=== PATIENT | female | born 1995 | race Caucasian/White ===

== ENCOUNTER 2017-08-28 15:14 | Emergency (ER) | payer OTHER ==
--- NOTE | 2017-08-28 15:27 | EDPHY ---
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 - Social History Smoking Status: Never smoked Constitutional: Initial Vital Signs Temperature (C) 36.4 C 08/28/17 15:17 Heart Rate 82 08/28/17 15:17 Respiratory Rate 18 08/28/17 15:17 Blood Pressure 127/86 H 08/28/17 15:17 O2 Sat (%) 97 08/28/17 15:17 O2 Delivery Mode Nasal Cannula O2 (L/minute) 2 Allergies/Adverse Reactions: No Known Allergies Allergy (Verified 08/28/17 15:15) Home Medications: Medication Instructions Recorded Azithromycin [Zithromax] 250 mg PO DAILY #6 tab 08/28/17 Medical Decision Making ED Course/Re-evaluation: CHIEF COMPLAINT: Nausea, vomiting, diarrhea HISTORY OF PRESENT ILLNESS: The patient is a 22 y/o female with a history of VUR in her right kidney complaining of nausea, vomiting, diarrhea, chills, and urinary complaints for 4 days. She recently traveled to [place] and had these symptoms onset shortly after eating [place] 4 days ago. She has not had a solid bowel movement since her symptoms began, and her stool has a yellow color to it and is watery. She is prone to UTI's and is concerned that she has another UTI. Her symptoms become exacerbated after eating. Her friend is in this ED with similar GI symptoms. Denies chest pain, shortness of breath, numbness, paresthesias, headache. REVIEW OF SYSTEMS: A 10 point review of systems was performed and is negative with the exception of the elements mentioned in the history of present illness. PHYSICAL EXAM: HR, BP, O2 Sat, RR. Temp noted General Appearance: Alert, well hydrated, appropriate, and non-toxic appearing. Head: Atraumatic without scalp tenderness or obvious injury Eyes: Pupils equal, round, reactive to light and accommodation, EOMI, no trauma , no injection. Ears: Clear bilaterally, no perforation, normal landmarks Nose: Atraumatic, no rhinorrhea, clear. Throat: There is no erythema or exudates, no lesions, normal tonsils, mucus membranes moist. Neck: Supple, nontender, no lymphadenopathy. Respiratory: No retractions, no distress, no wheezes, and no accessory muscle use. Lungs are clear to auscultation bilaterally. Cardiovascular: Regular rate and rhythm, no murmurs, rubs, or gallops. Good capillary refill all extremities. Gastrointestinal: Mild diffuse abdominal tenderness. Mild right flank pain. Mild distension. Abdomen is soft, no masses, no rebound, no guarding, no peritoneal signs. Musculoskeletal: Normal active ROM of all extremities, atraumatic. Neurological: Alert, appropriate, and interactive. Non-focal neuro Skin: No rashes, good turgor, no nodules on palpation. Past medical history: UTIs and Kidney Infections, VUR in right Kidney Past surgical history: Leopold teeth extraction Family history: Denies Social history: Student at , lives in [place], [facility] DIFFERENTIAL DIAGNOSIS: The differential diagnosis for the patient's nausea, vomiting, and diarrhea included but was not limited to bacterial infection, parasitic infection, gastroenteritis, gastritis, appendicitis, and medication side effect. MEDICAL DECISION MAKING: The patient is a 22 y/o female presenting with nausea, vomiting, diarrhea, and chills for 4 days. She is still having frequent episodes of yellow, watery diarrhea. On exam she has mild diffuse abdominal tenderness, mild abdominal distension and mild right flank pain. She would like her urine and stool to be tested for an infectious process. Blood work, UA, and GI pathogen ordered. 2L IV NS, 1gm IV Invanz, 0.5mg IV Dilaudid, 4mg IV Zofran, and 30mg IV Toradol administered. 1629: Patient is not feeling better after medication and is complaining of rectal pain and spasms. SAGAR Zuniga will preform a rectal exam. 1mg IV Ativan and additional 0.5mg IV Dilaudid administered. 173: Patient's UA reveals 1+ bacteria. 181: Patient's nurse has reported that the patient is not feeling improved and continues to feel nauseous. 12.5mg IV Phenergan administered. 190: Reassessed patient; she is feeling mildly improved. I have prescribed her Zithromax, Zofran, and [place] for her symptoms. Return precautions provided; patient is comfortable with this plan. - Data Points Laboratory Results: Laboratory Results 08/28/17 15:47 08/28/17 15:47 08/28/17 08/28/17 08/28/17 17:50 16:50 15:47 WBC RBC Hgb Hct MCV MCH MCHC RDW Plt Count MPV Neut % (Auto) Lymph % (Auto) [place] % (Auto) Eos % (Auto) Baso % (Auto) Nucleat RBC Rel Count Absolute Neuts (auto) Absolute Lymphs (auto) Absolute Monos (auto) Absolute Eos (auto) Absolute Basos (auto) Absolute Nucleated RBC Immature Gran % Immature Gran # Sodium 142 mEq/L mEq/L (135-145) Potassium 4.0 mEq/L mEq/L (3.5-5.2) Chloride 107 mEq/L mEq/L (97-110) Carbon Dioxide 26 mEq/l mEq/l (22-31) Anion Gap 9 mEq/L mEq/L (8-16) BUN 11 mg/dL mg/dL (7-23) Creatinine 0.8 mg/dL mg/dL (0.6-1.0) Estimated GFR > 60 Glucose 98 mg/dL mg/dL (70-100) Calcium 9.9 mg/dL mg/dL (8.5-10.4) Total Bilirubin 0.5 mg/dL mg/dL (0.1-1.4) Conjugated Bilirubin 0.2 mg/dL mg/dL (0.0-0.5) Unconjugated Bilirubin 0.3 mg/dL mg/dL (0.0-1.1) AST 32 IU/L IU/L (14-46) ALT 32 IU/L IU/L (9-52) Alkaline Phosphatase 64 IU/L IU/L (38-126) Total Protein 7.6 g/dL g/dL (6.3-8.2) Albumin 4.5 g/dL g/dL (3.5-5.0) Lipase 174 IU/L IU/L (23-300) Urine Color PALE YELLOW Urine Appearance CLEAR Urine pH 6.0 (5.0-7.5) Ur Specific [place] 1.004 (1.002-1.030) Urine Protein NEGATIVE (NEGATIVE) Urine Ketones NEGATIVE (NEGATIVE) Urine Blood NEGATIVE (NEGATIVE) Urine Nitrate NEGATIVE (NEGATIVE) Urine Bilirubin NEGATIVE (NEGATIVE) Urine Urobilinogen NEGATIVE EU EU (0.2-1.0) Ur Leukocyte Esterase NEGATIVE (NEGATIVE) Urine RBC 1-3 /hpf /hpf (0-3) Urine WBC 1-3 /hpf /hpf (0-3) Ur Epithelial Cells TRACE /lpf /lpf (NONE-1+) Urine Bacteria 1+ /hpf H /hpf (NONE SEEN) Urine Glucose NEGATIVE (NEGATIVE) Stool Concentration Pending Stool Ova & Parasites Pending Parasite Trichrome Pending Direct Microscop Exam Pending 08/28/17 15:47 WBC 6.17 10^3/uL 10^3/uL (3.80-9.50) RBC 4.82 10^6/uL 10^6/uL (4.18-5.33) Hgb 14.6 g/dL g/dL (12.6-16.3) Hct 41.8 % % (38.0-47.0) MCV 86.7 fL fL (81.5-99.8) MCH 30.3 pg pg (27.9-34.1) MCHC 34.9 g/dL g/dL (32.4-36.7) RDW 11.9 % % (11.5-15.2) Plt Count 250 10^3/uL 10^3/uL (150-400) MPV 9.6 fL fL (8.7-11.7) Neut % (Auto) 59.5 % % (39.3-74.2) Lymph % (Auto) 25.9 % % (15.0-45.0) [place] % (Auto) 12.2 % % (4.5-13.0) Eos % (Auto) 1.8 % % (0.6-7.6) Baso % (Auto) 0.3 % % (0.3-1.7) Nucleat RBC Rel Count 0.0 % % (0.0-0.2) Absolute Neuts (auto) 3.67 10^3/uL 10^3/uL (1.70-6.50) Absolute Lymphs (auto) 1.60 10^3/uL 10^3/uL (1.00-3.00) Absolute Monos (auto) 0.75 10^3/uL 10^3/uL (0.30-0.80) Absolute Eos (auto) 0.11 10^3/uL 10^3/uL (0.03-0.40) Absolute Basos (auto) 0.02 10^3/uL 10^3/uL (0.02-0.10) Absolute Nucleated RBC 0.00 10^3/uL 10^3/uL (0-0.01) Immature Gran % 0.3 % % (0.0-1.1) Immature Gran # 0.02 10^3/uL 10^3/uL (0.00-0.10) Sodium Potassium Chloride Carbon Dioxide Anion Gap BUN Creatinine Estimated GFR Glucose Calcium Total Bilirubin Conjugated Bilirubin Unconjugated Bilirubin AST ALT Alkaline Phosphatase Total Protein Albumin Lipase Urine Color Urine Appearance Urine pH Ur Specific [place] Urine Protein Urine Ketones Urine Blood Urine Nitrate Urine Bilirubin Urine Urobilinogen Ur Leukocyte Esterase Urine RBC Urine WBC Ur Epithelial Cells Urine Bacteria Urine Glucose Stool Concentration Stool Ova & Parasites Parasite Trichrome Direct Microscop Exam Medications Given: Discontinued Medications Ertapenem (Invanz) 1 gm IVP EDNOW ONE PRN Reason: Protocol Stop: 08/28/17 15:46 Last Admin: 08/28/17 15:57 Dose: 1 gm Hydromorphone HCl (Dilaudid) 0.5 mg IVP EDNOW ONE Stop: 08/28/17 15:37 Last Admin: 08/28/17 15:58 Dose: 0.5 mg Hydromorphone HCl (Dilaudid) 0.5 mg IVP EDNOW ONE Stop: 08/28/17 16:33 Last Admin: 08/28/17 16:37 Dose: 0.5 mg Sodium Chloride (Ns) 1,000 mls @ 0 mls/hr IV EDNOW ONE; Wide Open PRN Reason: Protocol Stop: 08/28/17 15:37 Last Admin: 08/28/17 15:59 Dose: 1,000 mls Sodium Chloride (Ns) 1,000 mls @ 0 mls/hr IV EDNOW ONE; Wide Open PRN Reason: Protocol Stop: 08/28/17 15:37 Last Admin: 08/28/17 16:37 Dose: 1,000 mls Ketorolac Tromethamine (Toradol) 30 mg IVP EDNOW ONE Stop: 08/28/17 15:37 Last Admin: 08/28/17 15:59 Dose: 30 mg Lorazepam (Ativan Injection) 1 mg IVP EDNOW ONE Stop: 08/28/17 16:34 Last Admin: 08/28/17 16:37 Dose: 1 mg Ondansetron HCl (Zofran) 4 mg IVP EDNOW ONE Stop: 08/28/17 15:37 Last Admin: 08/28/17 16:00 Dose: 4 mg Promethazine HCl (Phenergan) 12.5 mg IVP ONCE ONE Stop: 08/28/17 18:14 Last Admin: 08/28/17 18:14 Dose: 12.5 mg Departure - Departure Disposition: Home, Routine, Self-Care Clinical Impression: Diarrhea Qualifiers: Diarrhea type: unspecified type Qualified Code(s): R19.7 - Diarrhea, unspecified Condition: Good Instructions: Azithromycin (By mouth), Acute Diarrhea (ED) Additional Instructions: 1. Take Zithromax as prescribed. Make sure to finish the entire prescription even if your symptoms improve. It is okay to take Fluconazole. 2. Clear liquids for 24 hours. 3. Advance diet as tolerated. I suggest the BRAT diet to start: bananas, rice, applesauce and toast. 4. Take Zofran as prescribed for nausea. 5. Take [place] as prescribed for severe pain. 6. Return for worsening symptoms, persistent vomiting, abdominal pain, any concerns. Referrals: STARR DELACRUZ [Other] - As per Instructions Prescriptions: Azithromycin [Zithromax] 250 mg PO DAILY #6 tab Report Scribed for: Eitan Chu Report Scribed by: Kaleigh Sanders Date of Report: 08/28/17 Time of Report: 15:26
[2017-08-28] MEDS ORDERED: KETOROLAC 30 MG/1 ML SDV IVP ONE (15:36)
[2017-08-28] MEDS ORDERED: NS 1,000 ML IV ONE ×2 (15:36)
[2017-08-28] MEDS ORDERED: HYDROmorphONE/DILAUDID 2 MG/ML INJ IVP ONE (15:36)
[2017-08-28] MEDS ORDERED: ONDANSETRON 4 MG/2 ML VIAL IVP ONE (15:36)
[2017-08-28] MEDS ORDERED: ERTAPENEM 1 GM VIAL IVP ONE (15:45)
[2017-08-28 16:08] LABS: PLATELET COUNT 250 10^3/uL (150-400)
[2017-08-28] MEDS ORDERED: HYDROmorphONE/DILAUDID 1 MG/ML INJ IVP ONE (16:32)
[2017-08-28] MEDS ORDERED: LORazepam 2 MG/ML INJ IVP ONE (16:33)
[2017-08-28] MEDS ORDERED: PROMETHAZINE HCL 25 MG/ML INJ ONE (18:12)
[2017-08-28] MEDS ORDERED: PROMETHAZINE HCL 25 MG/ML INJ IVP ONE (18:13)
[2017-08-28] MEDS ORDERED: HYDROCOD/APAP 5/325 PREPACK#6 BTL TAKEHOME ONE (19:57)
[2017-08-28] MEDS ORDERED: ONDANSETRON 4MG PREPACK#2 BTL TAKEHOME ONE ×2 (19:57→19:58)
[2017-08-28 20:17] VITALS: BP 112/66
== END 2017-08-28 20:03 | disposition home or self-care (01) ==
DX: R19.7 Diarrhea, unspecified (principal); E86.9 Volume depletion, unspecified
CPT/HCPCS: 96374; J1170; J1335; J1885; J2060; J2405; J2550